=== PATIENT | male | born 1965 | race African-American/Black ===

== ENCOUNTER 2022-11-05 07:06 | Emergency (ER) | payer OTHER ==
[~2022-11-05] VITALS: Ht 177.8 cm; Wt 106.6 kg
[2022-11-05 07:47] VITALS: BP 151/104
== END 2022-11-05 10:27 | disposition left against medical advice (07) ==
LOC: ER 08:21
DX: Z53.21 Procedure and treatment not carried out due to patient leaving prior to being seen by health care provider (principal)
CPT/HCPCS: 99281